=== PATIENT | female | born 1970 | race Caucasian/White ===

== ENCOUNTER 2019-11-20 11:46 | Emergency (ER) | payer OTHER ==
[~2019-11-20] VITALS: Ht 165.1 cm; Wt 62.0 kg
[2019-11-20] MEDS ORDERED: LIDOcaine 1% W/epiNEPHrine 1:200,000 10ml vial IJ ONE (12:15)
[2019-11-20] MEDS ORDERED: CEPH250T PO (12:54)
[2019-11-20] MEDS ORDERED: BACDS PO (12:54)
--- NOTE | 2019-11-20 13:34 | NUR ---
REGISTRATION NOTIFIED RN THAT PT IN [facility] FELT IF SHE WERE GOING TO PASS OUT. WENT IN TO ASSESS PT. PT STATED THAT SHE GOT STRESSED AND FELT LIGHT HEADED BUT FEELING HAS RESOLVED NOW. JESIKA GLEZ NOTIFIED. REPEAT VITALS TAKEN AND STABLE. PT NOTIFED SHE COULD CHECK BACK INTO ED FOR FURTHER EVAL IF SHE FELT IT WAS NEEDED. PT REPEATED THAT FEELINGS HAVE RESOLVED AND IS WAITING FOR TO PICK HER UP. PT WAITING FOR RIDE IN BED 18.
[2019-11-20 13:37] VITALS: BP 104/87
== END 2019-11-20 13:19 | disposition home or self-care (01) ==
LOC: ER 11:47
DX: N75.0 Cyst of Bartholin's gland (principal); Z79.899 Other long term (current) drug therapy
CPT/HCPCS: 10060; 56420; 99283; 99284

== ENCOUNTER 2019-11-24 18:12 | Emergency (ER) | payer OTHER ==
[~2019-11-24] VITALS: Ht 167.6 cm; Wt 70.0 kg
[~2019-11-24 18:12] MED LIST: BACDS PO; CEPH250T PO
[2019-11-24 18:15] VITALS: BP 140/102
== END 2019-11-24 20:16 | disposition home or self-care (01) ==
LOC: ER 18:12
DX: N75.0 Cyst of Bartholin's gland (principal); Z79.899 Other long term (current) drug therapy
CPT/HCPCS: 99281; 99282